=== PATIENT | male | born 1970 | race Caucasian/White ===

== ENCOUNTER 2017-02-21 13:41 | Emergency (ER) | payer OTHER ==
[~2017-02-21] VITALS: Ht 185.4 cm; Wt 91.0 kg
[~2017-02-21 13:41] MED LIST: ALBU8.5H4 IH; ALPR1TAB2 PO; FLUO20CA25 PO; HYDR-579 PO; IBUP-1827 PO; OXYC-388 PO
[2017-02-21 13:49] VITALS: BP 120/76; PULSE 94; RESP 18; O2SAT 97
--- NOTE | 2017-02-21 15:14 | ED.REPORT ---
HPI-Medication Refill Date of Service Feb 21, 2017 ED Provider: Niurka Villasenor History of Present Illness: has ptsd and anxiety, wants meds immediately. fired by [employer] for missing appointments. WEnt to old provider and sent here. does not remember who he sees for mental health. wants prozac 40 mg and clonzapam 1 mg bid, self medication with thc, not working anymore per his report. States has not taken his medication for 2 months. Wants wound check also review of [employer] shows no clonzapam for 1 year Nursing Notes Chief Complaint: Psychiatric Complaint Nursing Notes Reviewed: Yes Allergies: Uncoded Allergies: NEOSPORIN (Allergy, Mild, rash, 02/21/17) Scheduled Fluoxetine (Fluoxetine) 20 Mg Capsule 20 MG PO DAILY Scheduled PRN Albuterol HFA (Albuterol HFA) 8.5 Gm Hfa.aer.ad 2 PUFF IH Q4 PRN PRN For Shortness of Breath Alprazolam (Xanax) 1 Mg Tablet 0.5-1 MG PO TID PRN PRN For Anxiety Hydrocodone/Acetaminophen ([place] 10-325 Tablet) 1 Each Tablet 1 EACH PO Q4-6H PRN PRN For Pain Ibuprofen (Ibuprofen) 600 Mg Tablet 600 MG PO TID PRN PRN For Pain oxyCODONE-Aspirin 5-325 mg (oxyCODONE-Aspirin 5-325 mg) 1 Each Tablet 1 TABLET PO Q6H PRN PRN For Pain General Time Seen by Provider: 15:14 Chief Complaint Ran out of medication Hx Obtained From: Patient Past Medical History Past Medical History ptsd and anxiety per his report Past Surgical History litho and clavicle Smoking History Current Every Day Smoker (20 cig a day for 25 years) Social History Alcohol Use: "Social" Drug Use: THC Occupation seperated lives in [employer] 02/21/2017 no work or school at this time Ambulatory Status Independent Review of Systems Basic Review of Systems Eyes: Vision NL, No discharge Hematologic: No bleeding, No bruising Psychiatric: Normal thought content Physical Exam Initial Vital Signs Vital Signs (First) Date Time Temp Pulse Resp B/P Pulse Ox O2 Delivery O2 Flow Rate FiO2 02/21/17 13:49 36.7 94 18 120/76 97 02/21/17 16:07 Room Air Initial VS: Reviewed, Vital signs normal General/Constitutional: Well-developed, Well-nourished Head / Eyes: Atraumatic, Normocephalic, PERRL ENT: Mucous membranes moist, Conjunctiva normal, No scleral icterus Neck: Supple, Non-tender, Full range of motion Respiratory: Breath sounds normal, Clear to auscultation, No respiratory distress Cardiovascular: Regular rate & rhythm, Heart sounds normal, Intact distal pulses Abdomen / GI: Soft, Non-tender, No guarding, No rebound, No distention Back: No CVA tenderness Lymphatic: No lymphadenopathy Extremities: Vascular intact, Neuro intact, No swelling, No tenderness Skin: Warm, Dry, No cyanosis Neurologic: Alert, Oriented, Nonfocal Psychiatric: Mood/affect normal, Behavior normal, Normal thought content General/Constitutional: Awake, Alert, No acute distress Respiratory / Chest: Atraumatic, Breath sounds NL, Breath sounds = bilat, No respiratory distress Cardiovascular: Heart rate NL, Regular rhythm, Heart sounds NL, No gallop Abdomen: Atraumatic, Soft, Non-tender right lower leg shows small wound that has hypertropic tissue extruding from wound. Small amount of blood dribble is down his entire leg. Wound is covered with a large amount of white qauze tape. Leg is cleaned and wound is treated with silver nitrate. Covered with small dressing. Advised patient no ointment and to leave site open at night. Re-Evaluation & [facility] Med Decision/Clinical Course Consult with [facility]. Patient is provided a prescription for prozac, however as he has not had his medications in over a year, an evualation by a mental health provider would be in his best interest. He is provided a next day appointment and informed that it is not an appointment with a prescriber but a counselor. He is agreeable to establish and wait for the next appointment with a prescriber. Patient denies SI or HI Patient Discharge & Departure Impression: Primary Impression: Medication refill Disposition: Home Discharge Condition Condition: Improved Additional Instructions: Your wound has been washed and silver nitrate applied. Do not cover with a tight occlusive dressing. Do not use any ointment on the wound. Leave this open at night. Your prozac has been refilled at 40 mg. Your clonzapam is not being refilled at this time. It has been over a year since you have been on this medication. This medication needs to come from a mental health provider if they choose to provide it. You have a next day appointment with [facility]. This is for counseling. It may take 2 months to get connected with a prescriber. You should establish in primary care. Please consider [facility]. Referrals: [facility] Provider for APC: Krunal Gibbons MD copies to: [facility] ; [facility] Niurka Villasenor Feb 21, 2017 15:14
[2017-02-21] MEDS ORDERED: Silver Nitrate Stick TOPICAL ONE (15:40)
[2017-02-21 16:07] VITALS: BP 118/66; PULSE 88; RESP 16; O2SAT 98
== END 2017-02-21 16:08 | disposition home or self-care (01) ==
LOC: SED 13:41
DX: Z76.0 Encounter for issue of repeat prescription (principal); Z48.00 Encounter for change or removal of nonsurgical wound dressing; F43.10 Post-traumatic stress disorder, unspecified; F41.9 Anxiety disorder, unspecified; F17.200 Nicotine dependence, unspecified, uncomplicated; Z88.1 Allergy status to other antibiotic agents

== ENCOUNTER 2017-02-23 17:58 | Inpatient (IN) | payer OTHER ==
[~2017-02-23] VITALS: Ht 182.9 cm; Wt 90.6 kg
[2017-02-23 18:01] VITALS: BP 118/62; PULSE 108; RESP 18; O2SAT 98
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
[2017-02-23 18:50] VITALS: BP 118/71; PULSE 98; O2SAT 97
[2017-02-23] MEDS ORDERED: 0.9% Sodium Chloride 1,000 ML IV ONE (18:52)
[2017-02-23] MEDS ORDERED: levoFLOXacin Inj 750 MG in IV Premix 1 EACH IV ONE (18:55)
[2017-02-23] MEDS ORDERED: Vancomycin Dose per Pharmacist XX ONE (18:55)
[2017-02-23] MEDS: HYDROmorphone 1 mg/mL Inj IVPUSH PRN ×2 (19:09→20:34)
[2017-02-23] MEDS ORDERED: Vancomycin Inj 1,750 MG in 0.9% Sodium Chloride 500 ML IV ONE (19:15)
[2017-02-23 19:16] LABS: BASOPHILS % (AUTO) 0.3 % (0-3); EOSINOPHILS % (AUTO) 0.6 % (0-5); MONOCYTES % (AUTO) 11.3 % (4-12); Mean Corpuscular Hemoglobin 30.5 pg (27.0-35.0); Mean Corpuscular Volume 95.9 fL (81-100); NEUTROPHILS % (AUTO) 77.6 % (40-74); Platelet Count 338 bil/L (150-400)
--- NOTE | 2017-02-23 19:37 | DRSVH ---
PROCEDURE: X-RAY CHEST ONE VIEW, PORTABLE ([id number]) INDICATIONS: sepsis, cough TECHNIQUE: One view of the chest was acquired. COMPARISON: None. FINDINGS: Surgical changes and devices: None. Lungs and pleura: No pleural effusions or pneumothorax. Lungs are clear. Mediastinum: Mediastinal contours appear normal. Heart size is normal. Bones and chest wall: No suspicious bony lesions. Overlying soft tissues appear unremarkable. IMPRESSION: No acute cardiopulmonary disease process. Dictated by: Gloria Montanez MD, PhD on 02/23/2017 at 19:35 Approved by: Gloria Montanez MD, PhD on 02/23/2017 at 19:35
[2017-02-23 20:15] LABS: ERYTHROCYTE SEDIMENTATION RATE 40 mm/hr (0-15)
--- NOTE | 2017-02-23 20:29 | DRSVH ---
PROCEDURE: CT FEMUR RIGHT WITH CONTRAST ([id number]) INDICATIONS: infected wound R thigh TECHNIQUE: After the administration of intravenous contrast, 3 mm axial sections acquired of the right thigh, wi th coronal and sagittal reformats. For radiation dose reduction, the following was used: automated exposure control, adjustment of mA and/or kV according to patient size. COMPARISON: None. FINDINGS: Image quality: Excellent. Bones: No fracture or dislocation. No cortical destruction or periosteal reaction identified. No d efinite fluid collection is identified in the knee joint or hip joint. Soft tissues: There is a large, multiloculated fluid collection in the right vastus lateralis muscle . The fluid collection has areas of subtle peripheral postcontrast enhancement. Inflammatory strand ing noted in the subcutaneous fat of the lateral right lower extremity. IMPRESSION: 1. Large multiloculated fluid collection measuring 7.3 x 4.1 x 26.7 cm in the right vastus lateralis muscle which given clinical history of infected wound likely represents an intramuscular abscess. 2. Extensive inflammatory stranding involving the subcutaneous fat of the lateral right upper extrem ity most consistent with cellulitis. 3. No shirin evidence of osteomyelitis. CT imaging can be insensitive to osteomyelitis during the ini tial 15 days of the disease process. If there is clinical concern for osteomyelitis, then three-phase nuclear medicine bone scan is warranted. Dictated by: Gloria Montanez MD, PhD on 02/23/2017 at 20:19 Approved by: Gloria Montanez MD, PhD on 02/23/2017 at 20:28
[2017-02-23 20:48] LABS: APPEARANCE,URINE CLEAR (CLEAR,HAZY); COLOR,URINE YELLOW (YELLOW); OCCULT BLOOD,URINE NEGATIVE (NEGATIVE); UROBILINOGEN,URINE NORMAL (NORMAL)
[2017-02-23] MEDS ORDERED: Alum-Mag Hydrox-Simeth 30 mL Suspension PO PRN (21:05)
[2017-02-23] MEDS ORDERED: Polyethylene Glycol (PEG) 17 Gm Powder PO PRN (21:05)
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
[2017-02-23] MEDS ORDERED: ALBU8.5H2 INHALATION (21:12)
[2017-02-23 21:15] VITALS: BP 106/57; PULSE 93; RESP 23; O2SAT 100
[2017-02-23] MEDS: Vancomycin Dose per Pharmacist XX SCH (21:20)
[2017-02-23 21:29] VITALS: BP 115/76; PULSE 91; RESP 24; O2SAT 96
--- NOTE | 2017-02-23 21:52 | NUR ---
Admit Pt. arrived on floor around 0. Pt. was alert and oriented x3. Pt. was extremely agitated. Pt. rates headache 5/10. in room, and was able to help answer some of the admit questions. IV vanco infusing. Telemetry placed on. Will continue to monitor.
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
[2017-02-23] MEDS: HYDROmorphone 0.5 mg/0.5 mL iSecure Syringe IVPUSH PRN (23:09)
[2017-02-23] MEDS: Lactated Ringer's 1,000 ML IV SCH (23:14)
--- NOTE | 2017-02-23 23:22 | NUR ---
MD dianna Jimenez MD pagesofia. Pt. had 6 beats of v-tach per panel monitor. Pt. asymptomatic. Will continue to monitor.
[2017-02-24] VITALS (14 sets, daily range): BP systolic 92–118; BP diastolic 52–70; PULSE 66–94; RESP 15–25; O2SAT 92–100
[2017-02-24] MEDS: Ondansetron 2 mg/mL 2 mL Inj IVPUSH PRN ×5 (00:21→20:27)
[2017-02-24] MEDS: Clindamycin Inj 600 MG in IV Premix 1 EACH IV SCH ×3 (00:25→16:30)
[2017-02-24] MEDS: Piperacillin-Tazo 3.375 Gm Inj 3.375 GM in Dextrose 5% Minibag Plus 50 ML IV SCH ×3 (01:56→19:15)
[2017-02-24] MEDS: HYDROmorphone 0.5 mg/0.5 mL iSecure Syringe IVPUSH PRN ×5 (03:40→20:18)
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
[2017-02-24 06:15] LABS: BASOPHILS % (AUTO) 0.3 % (0-3); EOSINOPHILS % (AUTO) 0.5 % (0-5); MONOCYTES % (AUTO) 12.6 % (4-12); Mean Corpuscular Hemoglobin 30.4 pg (27.0-35.0); Mean Corpuscular Volume 95.9 fL (81-100); NEUTROPHILS % (AUTO) 72.3 % (40-74); Platelet Count 309 bil/L (150-400)
[2017-02-24] MEDS: Vancomycin Inj 1,250 MG in 0.9% Sodium Chloride 250 ML IV SCH ×4 (06:19→16:26)
[2017-02-24] MEDS: Lactated Ringer's 1,000 ML IV SCH ×2 (07:25→17:25)
[2017-02-24] MEDS: Vancomycin Dose per Pharmacist XX SCH (08:30)
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
--- NOTE | 2017-02-24 14:23 | NUR ---
Leaves to OR Pt leave floor to OR via gurney. Consent signed prior with surgeon.
[2017-02-24] MEDS ORDERED: Lactated Ringer's 500 ML IV PRN (14:43)
[2017-02-24] MEDS ORDERED: Lactated Ringer's 1,000 ML IV SCH (14:43)
[2017-02-24] MEDS ORDERED: EPHEDrine Sulfate 50 mg/mL Inj IVPUSH PRN (14:45)
[2017-02-24] MEDS ORDERED: Ondansetron 2 mg/mL 2 mL Inj IVPUSH PRN (14:45)
[2017-02-24] MEDS ORDERED: fentaNYL-PF 50 mCg/mL 2 mL Inj IVPUSH PRN (14:45)
[2017-02-24] MEDS ORDERED: Dexamethasone 4 mg/mL Inj IVPUSH PRN (14:45)
[2017-02-24] MEDS ORDERED: Phenylephrine 10,000 mCg/mL Inj IVPUSH PRN (14:45)
[2017-02-24] MEDS ORDERED: MetoCLOpramide 5 mg/mL 2 mL Inj IVPUSH PRN (14:45)
[2017-02-24] MEDS ORDERED: HYDROmorphone 1 mg/mL Inj IVPUSH PRN (14:45)
--- NOTE | 2017-02-24 15:05 | PCM.HPANE ---
Patient Data Date of Service: Feb 24, 2017 Surgeon Admitting Provider:Amisha Jimenez DO Attending Provider:Amisha Jimenez DO Primary Care Physician:Vaenssa Other Provider:James Laughlin Anesthesia Reason for Visit Right Thigh Deep Tissue Abscess RIGHT THIGH DEEP TISSUE ABSCESS Ht/WT & BMI Height (Feet): 6 Height (Inches): 0.00 Weight (Kilograms): 90.600 Body Mass Index 27.05 Allergies Coded Allergies: bacitracin (Verified Adverse Reaction, Unknown, RASH, 02/23/17) neomycin (Verified Adverse Reaction, Unknown, RASH, 02/23/17) polymyxin B (Verified Adverse Reaction, Unknown, RASH, 02/23/17) Past Anesthesia History Anesthesia History: Denies:: Anesthesia Reactions, Malignant Hyperthermia Diabetes History Hx Diabetes?: No MRSA MRSA: No Medications Reported Medications Albuterol HFA (Proair HFA)8.5 Gm Hfa.aer.ad2 Puffs INHALATION Q4H PRN For Shortness of Breath #1 INHALER 02/23/17 Ibuprofen 600 Mg [id number] Mg PO Q6H PRN For Pain Ref 0 06/10/15 Fluoxetine 20 Mg [id number] Mg PO DAILY 30 Days Ref 0 01/14/15 Discontinued Reported Medications oxyCODONE-Aspirin 5-325 mg 1 Each Tablet1 Tablet PO Q6H PRN For Pain Ref 0 06/10/15 Alprazolam (Xanax)1 Mg Tablet0.5-1 Mg PO TID PRN For Anxiety Ref 0 01/14/15 Hydrocodone/Acetaminophen ([place] 10-325 Tablet)1 Each Tablet1 Each PO Q4-6H PRN For Pain 01/14/15 Albuterol HFA 8.5 Gm Hfa.aer.ad2 Puff IH Q4 PRN For Shortness of Breath #1 INHALER Ref 0 01/14/15 History History of ENT Problems?: No HEENT History: Denies:: Abnormal Airway Cataracts Difficult Intubation Dysphagia Glaucoma Hearing Problem Sinus Problem TMJ Denture Type: None Teeth Condition: Within Normal Limits Hx of Heart Problems?: No Cardiovascular History: Positive for:: Irregular Heartbeat (C/OF SYNCOPE) Denies:: Congestive Heart Failure Hypertension Hx of Respiratory Problem?: Yes Respiratory History: Positive for:: Asthma (RAD) Cough (HX URI'S) Denies:: Tuberculosis Use of C-PAP Machine (SNORES) Other Resp Pertinent History: Past hx of TB. Hx Neurologic Problems?: No Neurological History: Positive for:: Dizziness (SYNCOPE) Hx of GI Problems?: No Hx of Problems?: Yes Genitourinary History: Positive for:: Kidney Stones ( lithroposy) Male Hx: Denies:: Prostate Problems Scrotal Mass Testicular Surgery Skin History: Denies:: History Skin Disorders? Pressure Ulcers Hx Musculoskeletal Problems?: Yes Musculoskeletal History: Positive for:: Back Injury (Broken back) Musculoskeletal Trauma (Shoulder surgery) Hx of Psycho/Social Problems?: Yes Psycho Social History: Positive for:: Anxiety Bipolar Disorder Hx Depression Suicide Attempt (Last week) Other Psych Pertinent History: Schizoaffective disorder Hx Surgeries?: Yes (Shoulder surgery) Hx Any Other Health Problems?: No Other History: Positive for:: Hospitalization (Last week) Denies:: Cancer Endocrine Disease (C/OF NIGHT SWEATS) Thyroid Disease History Blood Transfusions: Positive for:: Accept Blood Products? Denies:: Blood Transfusions Hx Diabetes: No Occupation: homeless Hx Alcohol Use: NoHx Substance Use: Yes (Meth a week ago, and thc daily) Smoking Status: Current Every Day Smoker Heavy Tobacco Smoker Have You Smoked inLast 12 mo: YesApprox How Many Cigarettes/day: 1-2 packs Stop/Bang Treated for Sleep Apnea?: No Do You Have a CPAP Machine?: No S-Snoring: Do You Snore Loudly: No T-Tired: feel tired, fatigued: No O-Obsered: Observed not breath: No P-Blood Pressure: treated: No A- Age over 50: No N- Neck Large Circumference: No G- Gender Male: Yes SAMARIA Risk Assessment: Low Risk, <3 Yes Risk Assessment Category Category 1A: Patient has history of documented sleep apnea, and HAS NOT received any narcotic, sedative or anesthesia administration during this stay. Category 1B: Patient has history of documented sleep apnea, and HAS received any narcotic , sedative or anesthesia administration during this stay Category 2: Patient has SUSPECTED Obstructive Sleep Apnea, and HAS received any narcotic , sedative or anesthesia administration during this stay. Category 3: Patient has SUSPECTED Obstructive Sleep Apnea and HAS NOT received narcotic, sedative or anesthesia administration during this stay. Category 4: Outpatient in Procedural Areas with known sleep apnea or who screen positive for High Risk via the STOP/BANG questionnaire. Exam Exam Vital Signs Vital Signs Date Time Temp Pulse Resp B/P Pulse Ox O2 Delivery O2 Flow Rate FiO2 02/24/17 13:38 38.8 73 20 109/61 94 Room Air 02/24/17 09:20 37.7 68 21 93/58 93 Room Air 02/24/17 08:00 77 General Appearance: Alert, Oriented X3, Cooperative, No Acute Distress HEENT/AIRWAY: MP 2 Lungs: Clear to Auscultation, Normal Air Movement Heart: Exam Unremarkable, Regular Rate/Rhythm, No Murmurs/Rubs/Gallops Meds/Labs/Diagnostics Admission Meds Current Medications Sodium Chloride (Normal Saline) 1,000 ml @ 0 mls/hr Q0M ONCE IV Last administered on 02/23/17 19:09; Start 02/23/17 at 18:52; Stop 02/23/17 at 18:57 ; Status DC Pharmacy Consult 1 ea 1 ea ONCE ONCE XX Last administered on 02/23/17 19:35; Start 02/23/17 at 18:55; Stop 02/23/17 at 19:13; Status DC Levofloxacin/ Dextrose 750 mg/ Premix 150 ml @ 150 mls/hr ONCE ONCE IV Last administered on 02/23/17 19:39; Start 02/23/17 at 18:55; Stop 02/23/17 at 19:54 ; Status DC Vancomycin HCl 1750 mg/Sodium Chloride 500 ml @ 333.333 mls/hr OT ONCE IV Last administered on 02/23/17 20:49; Start 02/23/17 at 19:15; Stop 02/23/17 at 20:44; Status DC Piperacillin Sod/ Tazobactam Sod 3.375 gm/Dextrose/ Water 50 ml @ 12.5 mls/hr Q8 IV Last administered on 02/24/17 10:01; Start 02/24/17 at 00:30 Clindamycin Phosphate/ Dextrose 600 mg/ Premix 50 ml @ 100 mls/hr Q8 IV Last administered on 02/24/17 09:22; Start 02/24/17 at 00:30 Lactated Ringer's 1,000 ml @ 100 mls/hr Q10H IV Last administered on 23:14; Start 02/23/17 at 21:25 Vancomycin HCl/ Sodium Chloride (Vancocin Inj/ Normal Saline) 250 ml @ 166.667 mls/hr Q8H IV Last administered on 02/24/17t 06:19; Start 02/24/17 at 05:00 Labs Test 02/23/17 18:45 02/23/17 20:15 02/24/17 05:55 Erythrocyte Sedimentation Rate 40mm/hr (0-15) Lactic Acid Level 1.2mmol/L (0.4-2.0) Magnesium Level 2.0mg/dL (1.6-2.6) Total Bilirubin 0.5mg/dL (0.0-1.2) Aspartate Amino Transf (AST/SGOT) 16U/L (0-50) Alanine Aminotransferase (ALT/SGPT) 25U/L (0-44) Alkaline Phosphatase 99U/L (25-150) Total Protein 7.4g/dL (6.4-8.4) Albumin 4.0g/dL (3.4-5.0) Urine Color Yellow (YELLOW) Urine Appearance Clear (CLEAR,HAZY) Urine pH 6.0 (5.0-8.0) Urine Specific [place] 1.020 (1.003-1.035) Urine Protein Tracemg/dL (NEG,TRACE) Urine Glucose (UA) Negativemg/dL (NEGATIVE) Urine Ketones Tracemg/dL (NEGATIVE) Urine Occult Blood Negative (NEGATIVE) Urine Nitrite Negative (NEGATIVE) Urine Bilirubin Negative (NEGATIVE) Urine Urobilinogen Normalmg/dL (NORMAL) Urine Leukocyte Esterase Negative (NEGATIVE) Urine RBC 0-2/hpf (0-2) Urine WBC 0-5/hpf (0-5) Urine Epithelial Cells Occasional/hpf (NONE-MOD) Urine Crystals None seen (NONE SEEN) Urine Bacteria None/hpf (NONE-FEW) Urine Hyaline Casts None/lpf (NONE) Urine Granular Casts None seen (NONE SEEN) Urine Waxy Casts None seen (NONE SEEN) Urine Red Blood Cell Casts None seen (NONE SEEN) Urine White Blood Cell Casts None seen (NONE SEEN) Urine Mucus None seen (None Seen) Urine Trichomonas None seen (NONE SEEN) Urine Yeast None (NONE SEEN) Urinalysis Comment None Urine Culture Reflexed Not indicated Urine Opiates Screen Negative Urine Methadone Screen Negative Urine Barbiturates Screen Negative Urine Amphetamines Screen Positive Urine Benzodiazepines Screen Negative Urine Cocaine Metabolite Screen Negative Urine Cannabinoids Screen Positive White Blood Count 16.0th/mm3 (3.8-10.1) Red Blood Count 3.62mil/mm3 (4.40-5.80) Hemoglobin 11.0g/dL (13.8-17.2) Hematocrit 34.7% (41.0-50.0) Mean Corpuscular Volume 95.9fL (81-100) Mean Corpuscular Hemoglobin 30.4pg (27.0-35.0) Mean Corpuscular Hemoglobin Concent 31.7% (32.0-37.0) Red Cell Distribution Width 14.7% (12.3-15.4) Platelet Count 309bil/L (150-400) Neutrophils (%) (Auto) 72.3% (40-74) Lymphocytes (%) (Auto) 13.9% (14-46) Monocytes (%) (Auto) 12.6% (4-12) Eosinophils (%) (Auto) 0.5% (0-5) Basophils (%) (Auto) 0.3% (0-3) Sodium Level 137mEq/L (134-144) Potassium Level 4.4mEq/L (3.5-5.2) Chloride Level 102mEq/L (97-108) Carbon Dioxide Level 23mmol/L (18-29) Blood Urea Nitrogen 10mg/dL (6-24) Creatinine 0.87mg/dL (0.76-1.27) Estimat Glomerular Filtration Rate 101mL/min (>59) Glucose Level 100mg/dL (60-99) Calcium Level 8.6mg/dL (8.5-10.1) Plan Impression Patient chart reviewed, patient interviewed and anesthestic plan with risks, benefits, and alternatives discussed, and informed consent obtained. NPO per Anesth. Guidelines: Yes ASA Physical Status: ASA2 Plus Emergency Anesthetic Plan: GA Bene/Risks/Altern/Consents: Yes HP Complete Prior to Induction: Yes Aguilar Rueda DO Feb 24, 2017 15:05
[2017-02-24] MEDS ORDERED: Bupivacaine-MPF 0.25%/EPI 30 mL Inj INJ ONE (15:30)
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
--- NOTE | 2017-02-24 16:27 | PCM.ANEP1 ---
Post Anesthesia Phase 1 PACU Phase 1 Assessment Date of Service: Feb 24, 2017 Vital Signs Vital Signs Date Time Temp Pulse Resp B/P Pulse Ox O2 Delivery O2 Flow Rate FiO2 02/24/17 16:15 94 16 107/70 95 Room Air 02/24/17 16:04 37.7 91 18 109/70 93 Room Air 02/24/17 15:55 37.6 80 25 113/66 92 Room Air 02/24/17 15:50 77 15 118/68 92 Room Air 02/24/17 15:45 72 20 104/65 96 Room Air 02/24/17 15:40 73 20 95/63 100 Simple Mask 8 02/24/17 15:35 37.5 71 22 92/67 100 Simple Mask 8 02/24/17 13:38 38.8 73 20 109/61 94 Room Air 02/24/17 09:20 37.7 68 21 93/58 93 Room Air Anesthetic Administered: GA Level of Alertness: Awake, talking MERCADO's with Equal Strength: Yes Pain: Yes Pain Scale Score: 7 Nausea or Vomiting: No Cardiovascular Function and Hy: Yes Oxygen Delivery: Simple Mask Lungs: Clear to Auscultation, Normal Air Movement Dermatome Level: Full Sensation Complications: No Follow up Care: No Aguilar Rueda DO Feb 24, 2017 16:27
--- NOTE | 2017-02-24 16:40 | NUR ---
Postop / SI Pt returns from OR. Right leg Kerlix dressing covered with drainage SS coming through. Reinforced with ABD pads. Per report [place] drain under dressing. IV in use. A&OX4. C/O itchy and seems very anxious and restless. Care continues No SI noted, no mention of any SI or actions reflecting such.
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
[2017-02-24] MEDS ORDERED: diphenhydrAMINE 25 mg Capsule PO PRN (17:30)
[2017-02-24] MEDS ORDERED: fentaNYL-PF 50 mCg/mL 2 mL Inj ONE (19:44)
[2017-02-24] MEDS ORDERED: Dexamethasone 4 mg/mL Inj ONE (19:44)
[2017-02-24] MEDS ORDERED: HYDROmorphone 2 mg/mL Inj ONE (19:44)
[2017-02-24] MEDS ORDERED: Ketamine 10 mg/mL 20 mL Inj ONE (19:44)
[2017-02-24] MEDS ORDERED: Ondansetron 2 mg/mL 2 mL Inj ONE (19:44)
[2017-02-24] MEDS ORDERED: Propofol 10,000 mCg/mL 20 mL Inj ONE (19:44)
[2017-02-24] MEDS: LORazepam 1 mg Tablet PO PRN (20:15)
[2017-02-24] MEDS ORDERED: Vancomycin Serum Trough XX ONE ×2 (20:30→23:30)
[2017-02-25] VITALS (7 sets, daily range): BP systolic 90–108; BP diastolic 50–61; PULSE 60–97; RESP 18–20; O2SAT 94–98
[2017-02-25] MEDS ORDERED: Vancomycin Inj 1,750 MG in 0.9% Sodium Chloride 500 ML IV ONE (00:28)
[2017-02-25] MEDS: Clindamycin Inj 600 MG in IV Premix 1 EACH IV SCH ×2 (00:48→08:34)
[2017-02-25] MEDS: LORazepam 1 mg Tablet PO PRN ×4 (01:01→17:35)
[2017-02-25] MEDS: Ondansetron 2 mg/mL 2 mL Inj IVPUSH PRN ×3 (01:01→10:03)
[2017-02-25] MEDS: HYDROmorphone 0.5 mg/0.5 mL iSecure Syringe IVPUSH PRN ×5 (01:01→15:08)
[2017-02-25] MEDS: Piperacillin-Tazo 3.375 Gm Inj 3.375 GM in Dextrose 5% Minibag Plus 50 ML IV SCH (02:30)
--- NOTE | 2017-02-25 02:59 | PCM.PHAPRO ---
Progress Date of Service: Feb 25, 2017 Requesting Provider: Amisha Jimenez DO leg pain acute sepsis, secondary to abscess/cellulitis A/ - Patient received I&D in afternoon 02/24 and doing well; however WBC jumped up to 16 (before I&D) from 12.3 at admission. Blood cultures showed no growth last 24 hours. Culture from abscess is pending - Trough level is low at 6.1. Comitant antibiotics: clindamycin and Zosyn P/ - Give one time booster dose of Vancomycin 1.75G, then 1.5G iv q8h. Trough level ordered @0030 on 02/26 Pharmacy will continue to follow and make necessary adjustment Naresh Leblanc, WoodyD, [facility] Mundo Leblanc Feb 25, 2017 02:59
[2017-02-25] MEDS: Lactated Ringer's 1,000 ML IV SCH ×2 (03:25→05:17)
--- NOTE | 2017-02-25 03:56 | NUR ---
DSG; dsg reinforced as needed. Sero sanguinous drainage noted. Pt c/o feeling itcy- partial bed bath taken which decreased itchiness. Ativan x2 for anxiety and sleep with effectiveness. Dilaudid iv given x2 with good relief of incisional discomfort. Pleasant and cooperative.
--- NOTE | 2017-02-25 04:24 | NUR ---
[facility] CERTIFIED CONCIERGE; reports; sinus rhythm 53.
[2017-02-25 07:46] LABS: Mean Corpuscular Hemoglobin 30.1 pg (27.0-35.0); Mean Corpuscular Volume 95.1 fL (81-100)
[2017-02-25] MEDS: Vancomycin Dose per Pharmacist XX SCH (08:30)
[2017-02-25] MEDS ORDERED: Vancomycin Inj 1,500 MG in 0.9% Sodium Chloride 500 ML IV SCH (09:00)
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
--- NOTE | 2017-02-25 10:45 | PROG NOTE ---
[address] [address] PROGRESS NOTE PATIENT: RICKEY DELUCA : 1970 MR#: [id number] ADMIT: 02/23/2017 JOB ID: [id number] DATE: 02/25/2017 SUBJECTIVE: Postop day one incision and drainage of infected hematoma versus abscess of the right thigh. Gram stain result demonstrated gram-positive cocci, culture is pending. Blood cultures have been negative. OBJECTIVE: On examination, his dressing is intact. There is no surrounding cellulitis on the wound. Labs show white count is down to 11.6 from 16, hematocrit is stable at 32. IMPRESSION AND PLAN: Doing well. Plan for wound care is for the nurses to remove his packing today, let him get into the shower to wash it out. The Vee drains will remain in place until Monday when he will be seen by Wound Care. He has asked me whether human immunodeficiency virus testing and hepatitis C testing have been done, and I have deferred that discussion to the Hospitalist service. He has not been seen by Psychiatry yet, and I will discuss with the Hospitalist service that recommendation, as I still feel that there are indications from his current and previous behavior that an acute psychiatric evaluation would be more than reasonable.
--- NOTE | 2017-02-25 11:25 | NUR ---
Wound care Packing removed from wound at 1010, pretreated with 1mg IV Dilaudid, pt in lot of pain, administered second milligram of Dilaudid after dressing change compleat. Pt stated he was in too much pain to go in the shower to wash it out. NS spray used to remove packing, rinsed wound out with NS before placing new ABD pads and Kerlix over [place] drains.
--- NOTE | 2017-02-25 11:43 | NUR ---
SW - Brief Note Data: Pt is on day 2 of hospitalization for right thigh deep tissue absess per H&P. Pt has no PCP and insurance is [employer]. Pt reports he has not completed DPOA/Advanced care directive paperwork and SW provided info to review and complete. Pt is currently homeless and reports that he uses meth and smokes marijuana occasionally because "I like it". He is not interested in quitting and declined CD resources or further CD assessment. Per morning rounds psych eval is pending. Per H&P pt had recent suicide attempt. SW checked in re: suicidal ideation and pt states he is having no SI at this time. SW offered resources for crisis line and pt stated he had them already. SW offered to make PCP appt at residency clinic and pt accepted. SW left message for UR Specialist to set this appt on Monday. SW will continue to follow for needs. Assessment: Pt who is homeless, recent suicide attempt, drug user. Independent at baseline. [facility] Pt declining CD resources and crisis line resources. SW to follow up with PCP appt at residency clinic. SW will continue to follow. YANIRA Avalos
[2017-02-25] MEDS: HYDROcodone-APAP 10-325 mg PO PRN ×2 (12:46→17:35)
--- NOTE | 2017-02-25 13:29 | NUR ---
I could hear whimpering/moaning coming from the patients room. Went in to find the patient sitting on the edge of the bed with the telephone to his ear. When I asked if he was ok he put his hand up and proceeded to leave what sounded to be a message on a telephone. He was unwilling to verbalize to me what he needed. I alerted his nurse in person to let her know of his appearance. Addendum: 02/25/17 at 1333 by REGINO WYNNE CNA Amended: Links added.
--- NOTE | 2017-02-25 14:00 | NUR ---
agitation pt very upset about his stuff being locked up, asked if we could go through his stuff and make sure it was all ok so that they did not need to be lock up. Security went through stuff with RN and patient, everything not allowed and his valuables were sealed and placed in the safe.
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
--- NOTE | 2017-02-25 17:00 | NUR ---
dressing changes Pt dressing fell off when he stood up, pt took shower to rinse out wounds. New dressing placed with stocking net over top to help hold up.
--- NOTE | 2017-02-25 19:23 | NUR ---
Off floor Pt very upset after phone call with his . stated she placed his jeep out on the street with all his stuff and placed it on Reji's list for free. Pt talked with vp patient and Security about moving jeep. Security escorted pt to his jeep and helped him move it and escorted him back to the floor.
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
[2017-02-26] MEDS ORDERED: Vancomycin Serum Trough XX ONE (00:30)
--- NOTE | 2017-02-26 17:52 | PCM.DIMED ---
Discharge Instructions Date of Service Feb 26, 2017 Dates of Hospitalization Feb 23, 2017 at 20:40 Discharge Diagnosis Discharge Diagnosis The patient left AMA I never saw the patient Cherise Majano DO Feb 26, 2017 17:52
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
== END 2017-02-25 19:45 | disposition left against medical advice (07) | DRG 872 ==
LOC: SED 17:58 → OSC 20:40
PROVIDERS: ADMIT Internal Medicine; ATTEND Internal Medicine
PROC: 0J9L0ZX Drainage of Right Upper Leg Subcutaneous Tissue and Fascia, Open Approach, Diagnostic (ICD-10-PCS; 2017-02-24)
PROC: 0J9L00Z Drainage of Right Upper Leg Subcutaneous Tissue and Fascia with Drainage Device, Open Approach (ICD-10-PCS; principal; 2017-02-24 15:00)
DX: A41.9 Sepsis, unspecified organism (principal); L02.415 Cutaneous abscess of right lower limb; S71.111S Laceration without foreign body, right thigh, sequela; F15.10 Other stimulant abuse, uncomplicated; D64.9 Anemia, unspecified; L03.115 Cellulitis of right lower limb; X78.8XXS Intentional self-harm by other sharp object, sequela; L08.9 Local infection of the skin and subcutaneous tissue, unspecified; B95.61 Methicillin susceptible Staphylococcus aureus infection as the cause of diseases classified elsewhere; Z59.0 Homelessness; F17.210 Nicotine dependence, cigarettes, uncomplicated; F12.10 Cannabis abuse, uncomplicated; F43.10 Post-traumatic stress disorder, unspecified; F41.9 Anxiety disorder, unspecified; F19.14 Other psychoactive substance abuse with psychoactive substance-induced mood disorder; Z72.811 Adult antisocial behavior